=== PATIENT | female | born 1990 | race American Indian/Alaskan Native ===

== ENCOUNTER 2016-11-27 02:40 | Emergency (ER) | payer BC, MEDICAID ==
--- NOTE | 2016-11-27 03:51 | OBHP ---
Datetime: 11/27/2016 03:41 IP Adm Impression: Term, intrauterine Admit Comment, IP Provider: chief complaint-ciontractions HPI 26 y/o at 38.4 wga with c/o contractions since 1 am.Denies vaginal bleeding or loss of fl uid.Patient denies nause,vomiting, headache, chest pain, shortness of breath course uncomplicated; pnc with dr zarco PMH denies_ PSH denies OBGYN HX Social hx denies tobacco,alcohol or illicit drig use Exam see exam section A/P 26 y/o at 38.4 wga with threatened labor.gbs negative -discharge home -patient given active labor precautions -discussed with dr zarco Pelvic Type - PN: Adequate Extremities - PN: Normal Abdomen - PN: Normal Back - PN: Normal Lungs - PN: Normal Heart - PN: Normal Neurologic - PN: Normal General - PN: Normal Weight - Estimated: 3200 Presentation-Admit: Vertex Contraction Comments Provider: every 7-10min Comments, ACOG Physical Exam: Vulva no lesions vagina no lesions or discharge cervix 1cm;50/-3 Uterus gravid adnexa no adnexal tenderness Gestation - Est Wks by US: 38.4 IP Hx Assessment: The History has been Reviewed and is Current EGA AdmitDate IP: 38.4 Vital Signs Provider: Reviewed; Within Normal Limits IP Chief Complaint: Uterine contractions FHR Category Provider Fetus A: Category I Dilatation, Provider: 1 Effacement, Provider: 50 Station, Provider: -3 Genitourinary Exam: Normal DTRs - PN: Normal
[2016-11-27 03:56] VITALS: BMI 30.8
== END 2016-11-27 03:47 | disposition home or self-care (01) ==
LOC: C.EROB 02:40
DX: O47.1 False labor at or after 37 completed weeks of gestation (principal); Z3A.38 38 weeks gestation of pregnancy

== ENCOUNTER 2016-11-27 10:25 | Inpatient (IN) | payer MEDICAID ==
[2016-11-27 11:25] VITALS: BMI 30.2
[2016-11-27] MEDS ORDERED: Lactated Ringer's 1,000 ML IV SCH (11:30)
[2016-11-27] MEDS ORDERED: Oxytocin 30 UNIT 500 ML IV ONE (11:50)
[2016-11-27] MEDS ORDERED: Oxytocin 30 UNIT 500 ML IV PRN (11:51)
[2016-11-27 12:15] LABS: BASO % 0.4 % (0.0-2.0); EOS % 0.4 % (0.0-4.0); HEMATOCRIT 35.5 % (34.0-47.0); LYMPH # 1.6 K/uL (1.0-4.3); LYMPH % 16.9 % (20.0-40.0); MEAN CELL VOLUME 83.3 fL (81.0-99.0); MEAN CORPUSCULAR HEMOGLOBIN 26.8 pg (27.0-31.0); MEAN CORPUSCULAR HGB CONC 32.2 g/dL (33.0-37.0); MONO # 0.7 K/uL (0.0-0.8); MONO % 6.9 % (0.0-10.0); WHITE BLOOD COUNT 9.7 K/uL (4.8-10.8)
[2016-11-27 12:25] LABS: CHLORIDE 101 mmol/L (98-107); SODIUM 135 mmol/L (132-148)
[2016-11-27 12:27] LABS: AST/SGOT 20 U/L (14-36); BILIRUBIN,TOTAL 0.4 mg/dL (0.2-1.3); CARBON DIOXIDE 22 mmol/L (22-30); GFR AFRICAN-AMERICAN > 60; RBC URINE 19 /hpf (0-3); URINE BACTERIA RARE (<OCC); URINE BILIRUBIN NEGATIVE (NEGATIVE); URINE BLOOD 3+ (NEGATIVE); URINE COLOR Yellow (YELLOW); URINE GLUCOSE (UA) NORMAL (Normal); URINE KETONE NEGATIVE (NEGATIVE); URINE LEUKOCYTE ESTERASE 1+ Leu/uL (Negative); URINE PROTEIN NEGATIVE (NEGATIVE); URINE UROBILINOGEN NORMAL mg/dL (0.2-1.0); WBC URINE 10 /hpf (0-5)
[2016-11-27 12:28] LABS: ALB/GLOB RATIO 1.2 (1.0-2.1); ALKALINE PHOSPHATASE 204 U/L (38-126); ALT/SGPT 26 U/L (9-52); BLOOD UREA NITROGEN 8 mg/dL (7-17); CALCIUM 8.4 mg/dl (8.6-10.4); GLUCOSE,RANDOM 85 mg/dL (65-105); TOTAL PROTEIN 6.1 g/dL (6.3-8.3)
[2016-11-27] MEDS ORDERED: Bupivacaine 0.125%/FentaNYL 200 ML EPI ONE (12:44)
[2016-11-27] MEDS ORDERED: Bupivacaine HCl 0.25% PF (10 ml) Inj ONE (13:16)
--- NOTE | 2016-11-27 13:48 | OBPN ---
Datetime: 11/27/2016 13:45 IP Progress Impression: Normal progression of labor; Reassuring heart rate IP Informed Consent Obtain: Vaginal Delivery; Risks, Benefits and Alternatives Discussed IP Procedures: Sterile Vag Exam IP Progress Plan: Continue present management; Augmentation Membranes, Provider: Ruptured Contraction Comments Provider: Q 2min. FHR - Baseline A Provider: 140 Gestation - Est Wks by US: 38.0 Weight - Estimated: 3000 Presentation-Admit: Vertex IP Progress Note Comment: Second Stage of Labor. Reassuring Status. Anticipate . Vital Signs Provider: Reviewed; Within Normal Limits NICHD Accel Fetus A IP Provider: [id number] FHR Category Provider Fetus A: Category I NICHD Variability Prov Fetus A: Moderate 6-25bpm Dilatation, Provider: 10 Effacement, Provider: 100 Station, Provider: 1 NICHD Decel Fetus A IP Provider: None
[2016-11-27] MEDS ORDERED: Benzocaine/Menthol 20%-0.5% Topical Spray (60 ml) TOP PRN (13:50)
--- NOTE | 2016-11-27 14:25 | OBDS ---
DELIVERY PERSONNEL Delivery Doctor: La Veronica MD Photographic Specialist: Lucero West RN Anesthesiologist: ines MATERNAL INFORMATION Delivery Anesthesia: Epidural Medications in Delivery: pitocin 20 Estimated Blood Loss (ml): 150 Placenta Cultured: No Maternal Complications: None Provider Comments: TO A VIABLE GIRL, 'S 9/9 LABOR SUMMARY EDC: 12/07/2016 00:00 No. Babies in Womb: 1 Attempted: No Labor Anesthesia: Epidural LABOR INFORMATION Reason for Induction: Not Applicable Onset of Labor: 11/27/2016 06:00 Complete Dilatation: 11/27/2016 13:50 Oxytocin: Augmentation Group B Beta Strep: Negative (Annotations: 11/12/2016) Steroids Given: None Reason Steroids Not Administered: Not Applicable MEMBRANES Membranes Rupture Method: Spontaneous Rupture of Membranes: 11/27/2016 13:45 Length of Rupture (hrs): 0.33 Amniotic Fluid Color: Clear Amniotic Fluid Amount: Moderate Amniotic Fluid Odor: Normal STAGES OF LABOR Stage 1 hrs: 7 Stage 1 min: 50 Stage 2 hrs: 0 Stage 2 min: 15 Stage 3 hrs: 0 Stage 3 min: 7 Total Time in Labor hrs: 8 Total Time in Labor min: 12 VAGINAL DELIVERY Episiotomy: None Laceration Extension: First Degree Laceration Type: Vaginal Laceration Repair Note: First Degre Laceration repaired with 2-0 Chromic catgut Initial Vag Sponge Count: 10 Final Vag Sponge Count: 10 Initial Vag Sharps Count: 1 Final Vag Sharps Count: 1 Sponge Count Correct: Yes; Vaginal Sweep Performed Sharps Count Correct: Yes BABY A INFORMATION Infant Delivery Date/Time: 11/27/2016 14:05 Method of Delivery: Vaginal Born in Route : No : N/A Forceps: N/A Vacuum Extraction: N/A Shoulder Dystocia : No SHOULDER DYSTOCIA BABY A Infant Delivery Date/Time: 11/27/2016 14:05 PRESENTATION/POSITION BABY A Presentation: Cephalic Cephalic Presentation: Vertex Vertex Position: Right Occipital Anterior Breech Presentation: N/A PLACENTA INFORMATION BABY A Placenta Delivery Time : 11/27/2016 14:12 Placenta Method of Delivery: Spontaneous Placenta Status: Delivered SCORES BABY A Heart Rate 1 min: >100 bpm Resp Effort 1 min: Good Cry Reflex Irritability 1 min: Cough or Sneeze or Pulls Away Muscle Tone 1 min: Active Motion Color 1 min: Body [place], Extremities Blue Resuscitation Effort 1 min: Tactile Stimulation SCORE 1 MIN: 9 Heart Rate 5 min: >100 bpm Resp Effort 5 min: Good Cry Reflex Irritability 5 min: Cough or Sneeze or Pulls Away Muscle Tone 5 min: Active Motion Color 5 min: Body [place], Extremities Blue SCORE 5 MIN: 9 INFANT INFORMATION BABY A Gestational Age at Delivery: 38.4 Gestational Status: Term Infant Outcome : Liveborn Infant Condition : Stable Infant Sex: Female IDENTIFICATION/MEDS BABY A ID Band Number: [id number] ID Band Location: Left Leg; Left Arm Sensor Applied: Yes Sensor Number: [id number] Sensor Location : Cord Clamp WEIGHT/LENGTH BABY A Birthweight (gms): 2705 Weight (lb): 5 Weight (oz): 15 Length Inches: 18.50 Length cms: 47.0 CORD INFORMATION BABY A No. Cord Vessels: 3 Nuchal Cord : N/A Cord Blood Taken: Yes Suction: Mouth; Nose ASSESSMENT BABY A Infant Complications: None Physical Findings at Delivery: Within Normal Limits Respirations: Appears Normal Ampoule Sealer/ALS Called : No Infant Care By: henry Transferred To: Remains with Mother
--- NOTE | 2016-11-27 14:28 | OBADHP ---
Datetime: 11/27/2016 13:45 NICHD Accel Fetus A IP Provider: [id number] Datetime: 11/27/2016 11:23 Admit Comment, IP Provider: ACTIVE lABOR. LABOR PROTOCOL. Pelvic Type - PN: Adequate Extremities - PN: Normal Abdomen - PN: Normal Back - PN: Normal Breast - PN: Normal Lungs - PN: Normal Heart - PN: Normal Thyroid - PN: Normal Neurologic - PN: Normal HEENT - PN: Normal General - PN: Normal Weight - Estimated: 3000 Presentation-Admit: Vertex FHR - Baseline A Provider: 140 Membranes, Provider: Intact Contraction Comments Provider: q7MIN. Gestation - Est Wks by US: 38.0 Vital Signs Provider: Reviewed; Within Normal Limits IP Chief Complaint: Uterine contractions NICHD Variability Prov Fetus A: Moderate 6-25bpm FHR Category Provider Fetus A: Category I NICHD Decel Fetus A IP Provider: None Dilatation, Provider: 4 Effacement, Provider: 90 Station, Provider: -1 Genitourinary Exam: Normal DTRs - PN: Normal EGA AdmitDate IP: 38.4 IP Adm Impression: Term, intrauterine ; Active labor IP Admit Plan: Admit to unit; Initiate labor protocol Datetime: 11/27/2016 03:41 Comments, ACOG Physical Exam: Vulva no lesions vagina no lesions or discharge cervix 1cm;50/-3 Uterus gravid adnexa no adnexal tenderness IP Hx Assessment: The History has been Reviewed and is Current
[2016-11-28 07:13] LABS: HEMATOCRIT 34.8 % (34.0-47.0)
[2016-11-28] MEDS: Multiple Vitamins Tab PO SCH (10:41)
[2016-11-29 00:14] VITALS: PULSE 100
--- NOTE | 2016-11-29 08:04 | OBPPN ---
Datetime: 11/29/2016 08:02 PP Pain Prov: Within normal limits PP Nausea Prov: Denies PP Flatus Prov: Yes PP Abdomen/Uterus Prov: Normal PP Lochia Prov: Normal PP Extremities Prov: Normal PP Comments Phys Exam Prov: fudus below umbl ext no edema,no calf ten PP Impression Prov: Normal progression PP Plan Prov: Discharge PP Progress Note Prov: pt was seen at bed side, pain under control,no n/v, tolerating deit,min lochi a, flatus+ ppd#2 s/p dc home no sex motrin prn f/u in 6weeks Vital Signs Provider PP: Reviewed; Within Normal Limits
--- NOTE | 2016-11-29 08:06 | OBDCSUM ---
Datetime: 11/27/2016 03:47 Discharge Diagnosis, Provider: Term Delivered Disch Activity Restrictions: No exercising; No lifting; No driving; Minimize walking; Minimize stair -climbing; No sexual activity; Nothing in vagina - [place], tampons, douche Discharge Comment, Provider: no sex motrin prn f/u in 6wee Discharge Diagnosis Prov Other: s/p
[2016-11-29 08:28] VITALS: BP 118/81; RESP 18; TEMP 98; O2SAT 99
[2016-11-29] MEDS: Multiple Vitamins Tab PO SCH (09:42)
--- NOTE | 2016-11-30 11:12 | OBDCSUM ---
Datetime: 11/29/2016 11:17 Discharge Instructions, Provider: Routine instructions given Discharge Diagnosis, Provider: Term Delivered Contraception discussed, Prov: Yes Discharge Comment, Provider: , UNCOMPLICATED. Discharge Diagnosis Prov Other: Contraception after Delivery: Undecided
== END 2016-11-29 12:50 | disposition home or self-care (01) | DRG 373 ==
LOC: C.EROB 10:25 → C.4D 11:16 → C.4M 16:23
PROVIDERS: ADMIT Obstetrics & Gynecology; ATTEND Obstetrics & Gynecology
PROC: 10E0XZZ Delivery of Products of Conception, External Approach (ICD-10-PCS; principal; 2016-11-27)
PROC: 0HQ9XZZ Repair Perineum Skin, External Approach (ICD-10-PCS; 2016-11-27)
DX: O70.0 First degree perineal laceration during delivery (principal); Z37.0 Single live birth; Z3A.38 38 weeks gestation of pregnancy